=== PATIENT | female | born 1995 | race Caucasian/White ===

== ENCOUNTER 2023-01-24 14:53 | Emergency (ER) | payer MEDICAID ==
[~2023-01-24] VITALS: Ht 154.9 cm; Wt 51.7 kg
--- NOTE | 2023-01-24 15:10 | NUR ---
RECEIVED PT 27 YRS FMALE FROM HOME 9 WEEK PREGNENT C/O GENRALIZED WEEkness and N/V FOR 3 DAYS
[2023-01-24] MEDS ORDERED: PYRIDOXINE HCL 50 MG TABLET PO STA (15:21)
--- NOTE | 2023-01-24 15:30 | NUR ---
SEEN BY DR. NGUYEN
[2023-01-24] MEDS ORDERED: CYANOCOBALAMIN 500 MCG TABLET ONE (15:37)
--- NOTE | 2023-01-24 15:50 | NUR ---
INSERTED ANGO CATHETER G 20 ON RT AC BLOOD DROW AND SENT TO LAB [facility] SENT [facility]
[2023-01-24] MEDS ORDERED: IV NS 0.9% 1,000 ML BAG IV ONE (16:00)
[2023-01-24 16:13] LABS: BASOPHILS % (AUTO) 0.2 % (0.0-2.0); EOSINOPHILS % (AUTO) 0.5 % (0.0-6.0); HEMATOCRIT 42 % (33-45); HEMOGLOBIN 14.4 g/dL (11.5-14.8); MEAN CORPUSCULAR HGB CONC 35 g/dl (31.0-36.0); MEAN CORPUSCULAR VOLUME 89 fL (82-100); MONOCYTES # (AUTO) 0.5 K/uL (0.1-1.30); MONOCYTES % (AUTO) 5.6 % (2.0-12.0); NEUTROPHILS # (AUTO) 6.3 K/uL (1.8-8.9); NEUTROPHILS % (AUTO) 70.7 % (43.0-81.0); PLATELET COUNT (AUTO) 291 K/uL (150-450); RED BLOOD CELL COUNT(AUTO) 4.68 MIL/uL (4.0-5.2); WHITE BLOOD COUNT (AUTO) 8.9 K/uL (4.3-11.0)
[2023-01-24 16:43] LABS: CALCIUM, SERUM 8.8 mg/dL (8.5-10.1); CREATININE 0.5 mg/dL (0.6-1.3); POTASSIUM 3.4 mmol/L (3.5-5.1)
[2023-01-24 16:57] LABS: ALBUMIN 3.7 g/dL (3.4-5.0); BILIRUBIN,DIRECT 0.1 mg/dL (0.0-0.2); BILIRUBIN,TOTAL 0.3 mg/dL (0.2-1.0); TOTAL PROTEIN, SERUM 7.2 g/dL (6.4-8.2)
--- NOTE | 2023-01-24 17:10 | NUR ---
RESTING AT THIS TIME NO PAIN
--- NOTE | 2023-01-24 18:00 | NUR ---
IV removed. Catheter intact and site benign. Pressure and 4x4 applied to site. No bleeding noted.
--- NOTE | 2023-01-24 18:02 | NUR ---
Patient discharged to home in stable condition. Written and verbal after care instructions given. Patient verbalizes understanding of instruction.
[2023-01-24 18:10] VITALS: BP 115/75
== END 2023-01-24 18:11 | disposition home or self-care (01) ==
LOC: ER 14:55
DX: O21.8 Other vomiting complicating pregnancy (principal); Z3A.09 9 weeks gestation of pregnancy
CPT/HCPCS: 99285; 96360; 85025; 80048; 80076; 36415; 85730; J7030